=== PATIENT | female | born 1970 | race Two or more races ===

== ENCOUNTER 2019-05-29 05:29 | Day surgery (SDC) | payer OTHER ==
[2019-05-29] MEDS ORDERED: MIDAZOLAM HCL 2 MG/2ML VIAL ONE (06:32)
[2019-05-29] MEDS ORDERED: FENTANYL PF 250MCG/5ML AMPUL ONE (06:32)
[2019-05-29] MEDS ORDERED: FAMOTIDINE/PF INJ 20 MG/2 ML VIAL IV ONE (06:33)
[2019-05-29] MEDS ORDERED: ANESTHESIA TRAY IN PYXIS 1 EA TRAY MC ONE (06:42)
[2019-05-29] MEDS ORDERED: FENTANYL PF 100MCG/2ML AMPUL ONE (07:25)
[2019-05-29] MEDS ORDERED: HYDROCODONE/APAP 5/325MG 1 EACH TABLET ONE ×3 (07:30→08:06)
== END 2019-05-29 08:50 | disposition home or self-care (01) ==
LOC: DS 05:29
PROVIDERS: ATTEND Specialist
DX: M24.611 Ankylosis, right shoulder (principal); M75.41 Impingement syndrome of right shoulder; E66.3 Overweight; J45.909 Unspecified asthma, uncomplicated; K21.9 Gastro-esophageal reflux disease without esophagitis; Z68.30 Body mass index [BMI] 30.0-30.9, adult; Z98.890 Other specified postprocedural states
CPT/HCPCS: 23700; J2250; J3010 ×2; J3490